=== PATIENT | male | born 1970 ===

== ENCOUNTER 2017-05-07 10:07 | Emergency (ER) | payer OTHER ==
[2017-05-07 10:19] VITALS: RESP 20; TEMP 98.1
[2017-05-07] MEDS ORDERED: ONDANSETRON HCL 4 MG/2 ML SOL IV ONE (10:22)
[2017-05-07] MEDS ORDERED: HYDROMORPHONE HCL 2 MG/ML SOL IV ONE ×2 (10:22→14:07)
[2017-05-07] MEDS ORDERED: SODIUM CHLORIDE 0.9% 1000ML 1,000 ML IV ONE (10:22)
[2017-05-07 10:33] LABS: BASOPHILS % (AUTO) 1 % (0-3); EOSINOPHILS % (AUTO) 3 % (0-9); HEMATOCRIT 38 % (39-53); MEAN CORPUSCULAR VOLUME 92 fL (80-100); MONOCYTES % (AUTO) 16.5 % (0-12); NEUTROPHILS % (AUTO) 54.9 % (37-80)
[2017-05-07] MEDS ORDERED: ONDANSETRON HCL 4 MG/2 ML SOL ONE (10:34)
[2017-05-07] MEDS ORDERED: HYDROMORPHONE HCL 2 MG/ML SOL ONE ×2 (10:34→14:09)
[2017-05-07 10:44] LABS: ALBUMIN 2.3 gm/dl (3.4-5.0); CALCIUM 7.3 mg/dl (8.5-10.1); POTASSIUM 3.4 mMol/L (3.5-5.1)
[2017-05-07] MEDS ORDERED: PANTOPRAZOLE SODIUM 40 MG/10 ML PDS IV ONE (11:08)
[2017-05-07] MEDS ORDERED: PANTOPRAZOLE SODIUM 40 MG/10 ML PDS ONE (11:17)
[2017-05-07 11:30] LABS: APPEARANCE,URINE Clear; BILIRUBIN,URINE 1+ (NEGATIVE); COLOR,URINE Dark yellow; GLUCOSE, URINE (UA) NEGATIVE (NEGATIVE); KETONES,URINE TRACE (NEGATIVE); LEUKOCYTE ESTERASE ,URINE NEGATIVE (NEGATIVE); NITRATE,URINE NEGATIVE (NEGATIVE); OCCULT BLOOD,URINE NEGATIVE (NEG-TRACE); PH,URINE 5.5
[2017-05-07 11:41] LABS: ICTOTEST,URINE POSITIVE (NEGATIVE)
[2017-05-07 11:42] LABS: WBC,URINE 0-1 (0-5AV/HPF)
[2017-05-07] MEDS ORDERED: THIAMINE 100 MG/ML 100 MG/ML SOL IV ONE (12:10)
[2017-05-07] MEDS ORDERED: THIAMINE 100 MG/ML 100 MG/ML SOL ONE (12:13)
[2017-05-07 17:01] VITALS: BP 153/94; PULSE 79; O2SAT 96
== END 2017-05-07 16:07 | disposition home or self-care (01) ==
LOC: ED 10:07
DX: K40.90 Unilateral inguinal hernia, without obstruction or gangrene, not specified as recurrent (principal); K70.31 Alcoholic cirrhosis of liver with ascites; F10.10 Alcohol abuse, uncomplicated; Y90.6 Blood alcohol level of 120-199 mg/100 ml; R93.3 Abnormal findings on diagnostic imaging of other parts of digestive tract
CPT/HCPCS: 74176; 74177; 80053; 80307; 81001; 83735; 85025; 96365; 96366; 96374; 96375; 99285; J1170; J2405; Q9967; J3411

== ENCOUNTER 2017-07-03 10:33 | Emergency (ER) | payer OTHER ==
[2017-07-03 10:39] VITALS: RESP 20; TEMP 97.3; O2SAT 98
[2017-07-03] MEDS ORDERED: APAP/HYDROCODONE 325/5 TAB ONE (11:36)
[2017-07-03] MEDS: APAP/HYDROCODONE 325/5 TAB PO ONE (11:38)
[2017-07-03 11:50] LABS: BASOPHILS % (AUTO) 1 % (0-3); EOSINOPHILS % (AUTO) 4 % (0-9); HEMATOCRIT 40 % (39-53); HEMOGLOBIN 13.5 gm/dl (13.5-17.7); MEAN CORPUSCULAR HEMOGLOBIN 31.7 pg (27.0-32.0); MEAN CORPUSCULAR HGB CONC 33.9 gm/dl (32.0-36.0); MEAN CORPUSCULAR VOLUME 94 fL (80-100); MONOCYTES % (AUTO) 9.1 % (0-12); NEUTROPHILS % (AUTO) 64.1 % (37-80)
[2017-07-03 11:51] VITALS: BP 151/82; PULSE 84
[2017-07-03 11:54] LABS: LACTIC ACID 1.6 mMol/L (0.0-2.0)
[2017-07-03 11:59] LABS: INR 1.19 (0.86-1.12)
[2017-07-03 12:03] LABS: ALBUMIN 2.1 gm/dl (3.4-5.0); BILIRUBIN,TOTAL 0.6 mg/dl (0.2-1.0); CALCIUM 7.5 mg/dl (8.5-10.1); CREATININE 0.73 mg/dl (0.80-1.30); POTASSIUM 3.3 mMol/L (3.5-5.1); TOTAL PROTEIN 7.6 gm/dl (6.4-8.2)
== END 2017-07-03 12:41 | disposition home or self-care (01) ==
LOC: ED 10:33
DX: R10.30 Lower abdominal pain, unspecified (principal); Z98.890 Other specified postprocedural states
CPT/HCPCS: 36415; 80053; 82140; 85025; 85610; 99283; A9270-GY

== ENCOUNTER 2017-09-12 08:47 | Emergency (ER) | payer OTHER ==
[2017-09-12 10:11] LABS: LACTIC ACID 1.4 mMol/L (0.0-2.0)
[2017-09-12 10:22] LABS: INR 1.63 (0.86-1.12)
[2017-09-12 10:26] LABS: ALBUMIN 1.5 gm/dl (3.4-5.0); BILIRUBIN,TOTAL 4.2 mg/dl (0.2-1.0); CALCIUM 7.7 mg/dl (8.5-10.1); CARBON DIOXIDE 27.5 mEq/L (21-32); CREATININE 0.81 mg/dl (0.80-1.30); POTASSIUM 3.3 mMol/L (3.5-5.1); TOTAL PROTEIN 8.2 gm/dl (6.4-8.2)
[2017-09-12 11:15] LABS: HEMATOCRIT 41 % (39-53)
[2017-09-12 12:29] VITALS: TEMP 97.7
[2017-09-12 12:39] VITALS: RESP 24
[2017-09-12] MEDS ORDERED: BACITRACIN 500 U/GM OIN TOP ONE ×2 (12:55)
[2017-09-12 14:40] VITALS: BP 143/75; PULSE 114; O2SAT 92
[2017-09-12 16:15] LABS: PERTIONEAL FL RBC 132 /mm3
[2017-09-12 16:16] LABS: PERITONEAL FL WBCS 75 /mm3
== END 2017-09-12 14:13 | disposition home or self-care (01) ==
LOC: ED 08:47
DX: K70.31 Alcoholic cirrhosis of liver with ascites (principal); R06.02 Shortness of breath
CPT/HCPCS: 36415; 49083; 74177; 80053; 82140; 85014; 85025; 85048; 85610; 89050; 99211; 99283; 99284; Q9967; A9270-GY

== ENCOUNTER 2017-09-24 12:51 | Emergency (ER) | payer OTHER ==
[2017-09-24 14:09] VITALS: RESP 21; TEMP 98.5
[2017-09-24 14:28] LABS: INR 1.59 (0.86-1.12)
[2017-09-24 14:31] LABS: ALBUMIN 1.4 gm/dl (3.4-5.0); BILIRUBIN,TOTAL 2.1 mg/dl (0.2-1.0); CARBON DIOXIDE 29.4 mEq/L (21-32); CREATININE 0.78 mg/dl (0.80-1.30); TOTAL PROTEIN 8.5 gm/dl (6.4-8.2)
[2017-09-24 14:37] LABS: BASOPHILS % (AUTO) 2 % (0-3); EOSINOPHILS % (AUTO) 2 % (0-9); HEMATOCRIT 42 % (39-53); HEMOGLOBIN 13.8 gm/dl (13.5-17.7); LYMPHOCYTES % (AUTO) 12.18 % (10-50); MEAN CORPUSCULAR HEMOGLOBIN 31.4 pg (27.0-32.0); MEAN CORPUSCULAR HGB CONC 32.4 gm/dl (32.0-36.0); MEAN CORPUSCULAR VOLUME 97 fL (80-100); MONOCYTES % (AUTO) 13.5 % (0-12); NEUTROPHILS % (AUTO) 70.4 % (37-80)
[2017-09-24 14:41] LABS: POTASSIUM 2.5 mMol/L (3.5-5.1)
[2017-09-24 14:56] LABS: APPEARANCE,URINE Clear; BILIRUBIN,URINE NEGATIVE (NEGATIVE); COLOR,URINE Yellow; GLUCOSE, URINE (UA) NEGATIVE (NEGATIVE); KETONES,URINE NEGATIVE (NEGATIVE); LEUKOCYTE ESTERASE ,URINE NEGATIVE (NEGATIVE); NITRATE,URINE NEGATIVE (NEGATIVE); OCCULT BLOOD,URINE NEGATIVE (NEG-TRACE)
[2017-09-24 15:03] LABS: BACTERIA 1+ (< 1+); CRYSTALS NEGATIVE (0-3 AVE/HPF); RBC,URINE 0-2 (0-3AV/HPF); WBC,URINE 0-2 (0-5AV/HPF)
[2017-09-24] MEDS ORDERED: POTASSIUM CHLORIDE 10 MEQ TER PO ONE (15:25)
[2017-09-24] MEDS ORDERED: POTASSIUM CHLORIDE 2 MEQ/ML 10 MEQ, LIDOCAINE HCL 1% MDV 2 ML in SODIUM CHLORIDE 0.9% 1... IV ONE (15:26)
[2017-09-24] MEDS ORDERED: POTASSIUM CHLORIDE 2 MEQ/ML SOL IV ONE (15:35)
[2017-09-24] MEDS ORDERED: POTASSIUM CHLORIDE 10 MEQ TER ONE (15:36)
[2017-09-24] MEDS ORDERED: LIDOCAINE HCL 1% MPF 30 SOL ONE (15:42)
[2017-09-24 17:17] VITALS: BP 136/87; PULSE 100; O2SAT 94
== END 2017-09-24 17:07 | disposition home or self-care (01) ==
LOC: ED 12:51
DX: K70.31 Alcoholic cirrhosis of liver with ascites (principal)
CPT/HCPCS: 36415; 80053; 81001; 85025; 85610; 96365; 99284; 99285; J3480; A9270-GY; J2001

== ENCOUNTER 2017-10-10 11:00 | Emergency (ER) | payer OTHER ==
[2017-10-10 11:20] VITALS: TEMP 98.3
[2017-10-10 11:58] LABS: BASOPHILS % (AUTO) 2 % (0-3); EOSINOPHILS % (AUTO) 3 % (0-9); HEMATOCRIT 39 % (39-53); HEMOGLOBIN 12.6 gm/dl (13.5-17.7); LYMPHOCYTES % (AUTO) 10.15 % (10-50); MEAN CORPUSCULAR HEMOGLOBIN 32.4 pg (27.0-32.0); MEAN CORPUSCULAR HGB CONC 32.3 gm/dl (32.0-36.0); MONOCYTES % (AUTO) 11.2 % (0-12)
[2017-10-10 12:00] LABS: MEAN CORPUSCULAR VOLUME 100 fL (80-100)
[2017-10-10 12:08] LABS: ALBUMIN 1.2 gm/dl (3.4-5.0); BILIRUBIN,TOTAL 3.8 mg/dl (0.2-1.0); CALCIUM 7.3 mg/dl (8.5-10.1); CARBON DIOXIDE 21.9 mEq/L (21-32); CREATININE 1.08 mg/dl (0.80-1.30); POTASSIUM 4.1 mMol/L (3.5-5.1); TOTAL PROTEIN 8.1 gm/dl (6.4-8.2)
[2017-10-10] MEDS ORDERED: BACITRACIN 500 U/GM OIN TOP ONE ×2 (13:25→15:00)
[2017-10-10 13:37] VITALS: RESP 24; O2SAT 98
[2017-10-10] MEDS ORDERED: ALBUMIN HUMAN 25 GM/100 ML SOL IV ONE (14:03)
[2017-10-10] MEDS ORDERED: ALBUMIN HUMAN 200 ML IV ONE (14:04)
[2017-10-10] MEDS ORDERED: SODIUM CHLORIDE 0.9% FLUSH 10 ML SOL IV PRN (14:53)
[2017-10-10 15:27] VITALS: BP 137/74; PULSE 98
== END 2017-10-10 15:42 | disposition home or self-care (01) ==
LOC: ED 11:00
DX: K70.31 Alcoholic cirrhosis of liver with ascites (principal)
CPT/HCPCS: 36415; 80053; 82150; 85025; 96365; 99070; 99211; 99284; 99285; P9047; A9270-GY

== ENCOUNTER 2017-10-18 12:26 | Emergency (ER) | payer OTHER ==
[2017-10-18 12:55] VITALS: BP 113/71; PULSE 92; RESP 16; TEMP 97.8; O2SAT 100
== END 2017-10-18 14:07 | disposition home or self-care (01) ==
LOC: ED 12:26
DX: N50.89 Other specified disorders of the male genital organs (principal); K70.31 Alcoholic cirrhosis of liver with ascites; F10.20 Alcohol dependence, uncomplicated; R18.8 Other ascites; R53.81 Other malaise
CPT/HCPCS: 99282

== ENCOUNTER 2018-01-20 16:29 | Emergency (ER) | payer OTHER ==
[2018-01-20] MEDS ORDERED: APAP/OXYCODONE 1 EACH TABLET PO ONE (17:07)
[2018-01-20 17:08] VITALS: BP 102/58; PULSE 80; RESP 18; TEMP 97.4; O2SAT 99
[2018-01-20] MEDS ORDERED: APAP/OXYCODONE 1 EACH TABLET ONE (17:17)
== END 2018-01-20 17:25 | disposition home or self-care (01) ==
LOC: ED 16:29
DX: K40.90 Unilateral inguinal hernia, without obstruction or gangrene, not specified as recurrent (principal); R18.8 Other ascites
CPT/HCPCS: 99282; A9270-GY

== ENCOUNTER 2018-05-06 15:47 | Emergency (ER) | payer OTHER ==
[2018-05-06 16:35] VITALS: RESP 20
[2018-05-06 17:17] VITALS: TEMP 97.6
[2018-05-06 17:35] VITALS: O2SAT 100
[2018-05-06 17:36] VITALS: BP 110/64; PULSE 94
== END 2018-05-06 17:30 | disposition home or self-care (01) | DRG 153 ==
LOC: ED 15:47
DX: J02.9 Acute pharyngitis, unspecified (principal); K40.90 Unilateral inguinal hernia, without obstruction or gangrene, not specified as recurrent
CPT/HCPCS: 87430; 99282; 99283

== ENCOUNTER 2018-08-17 10:25 | Emergency (ER) | payer OTHER ==
[2018-08-17] MEDS: SODIUM CHLORIDE 0.9% FLUSH 10 ML SOL IV PRN ×2 (10:42→13:16)
[2018-08-17 11:09] LABS: BASOPHILS % (AUTO) 2 % (0-3); EOSINOPHILS % (AUTO) 6 % (0-9); HEMATOCRIT 22 % (39-53); HEMOGLOBIN 7.5 gm/dl (13.5-17.7); LYMPHOCYTES % (AUTO) 25.3 % (10-50); MEAN CORPUSCULAR HEMOGLOBIN 33.7 pg (27.0-32.0); MEAN CORPUSCULAR HGB CONC 34.2 gm/dl (32.0-36.0); MONOCYTES % (AUTO) 11.6 % (0-12); NEUTROPHILS % (AUTO) 55.7 % (37-80)
[2018-08-17 11:10] LABS: MEAN CORPUSCULAR VOLUME 99 fL (80-100)
[2018-08-17 11:15] LABS: ALBUMIN 1.1 gm/dl (3.4-5.0); BILIRUBIN,TOTAL 6.2 mg/dl (0.2-1.0); CALCIUM 7.3 mg/dl (8.5-10.1); CARBON DIOXIDE 26.8 mEq/L (21-32); CREATININE 1.28 mg/dl (0.80-1.30); POTASSIUM 3.1 mMol/L (3.5-5.1); TOTAL PROTEIN 6.8 gm/dl (6.4-8.2)
[2018-08-17] MEDS ORDERED: LACTULOSE 10 GM/15 ML SOL PO SCH (11:45)
[2018-08-17] MEDS ORDERED: LACTULOSE 10 GM/15 ML SOL ONE (11:53)
[2018-08-17 12:32] VITALS: RESP 16; TEMP 97.3; O2SAT 100
[2018-08-17] MEDS ORDERED: POTASSIUM CHLORIDE 2 MEQ/ML 40 MEQ, LIDOCAINE HCL 1% MDV 2 ML in SODIUM CHLORIDE 0.9% 5... IV ONE (13:00)
[2018-08-17] MEDS ORDERED: ALBUMIN HUMAN 25 GM/100 ML SOL IV ONE (13:00)
[2018-08-17] MEDS ORDERED: POTASSIUM CHLORIDE 2 MEQ/ML SOL IV ONE (13:05)
[2018-08-17] MEDS ORDERED: LIDOCAINE HCL 1% MPF 30 SOL ONE (13:06)
[2018-08-17] MEDS ORDERED: ALBUMIN HUMAN 100 ML IV ONE (13:20)
[2018-08-17] MEDS ORDERED: SPIRONOLACTONE 25 MG TAB ONE (13:39)
[2018-08-17 13:40] VITALS: PULSE 97
[2018-08-17] MEDS ORDERED: SPIRONOLACTONE 25 MG TAB PO SCH (13:45)
[2018-08-17 13:52] VITALS: BP 110/61
== END 2018-08-17 14:18 | disposition short-term general hospital (02) | DRG 443 ==
LOC: ED 10:25
DX: K72.90 Hepatic failure, unspecified without coma (principal); K70.31 Alcoholic cirrhosis of liver with ascites
CPT/HCPCS: 36415; 70450; 74177; 80053; 82140; 85025; 85610; 85730; 87040; 96365; 99070; 99283; 99291; J3480; P9047; Q9967; A9270-GY; J2001

== ENCOUNTER 2018-09-10 10:18 | Emergency (ER) | payer OTHER ==
[2018-09-10 10:35] VITALS: TEMP 99.5
[2018-09-10 10:50] VITALS: RESP 16
[2018-09-10 11:32] LABS: HEMATOCRIT 20 % (39-53); MEAN CORPUSCULAR HEMOGLOBIN 33.5 pg (27.0-32.0); MEAN CORPUSCULAR HGB CONC 34.1 gm/dl (32.0-36.0); MEAN CORPUSCULAR VOLUME 98 fL (80-100)
[2018-09-10 11:41] LABS: ALBUMIN 1.6 gm/dl (3.4-5.0); BILIRUBIN,TOTAL 6.5 mg/dl (0.2-1.0); CALCIUM 7.6 mg/dl (8.5-10.1); CARBON DIOXIDE 19.6 mEq/L (21-32); CREATININE 2.44 mg/dl (0.80-1.30); CRP INFLAMMATORY 5.46 mg/dl (0.00-0.33); POTASSIUM 4.3 mMol/L (3.5-5.1); TOTAL PROTEIN 6.4 gm/dl (6.4-8.2)
[2018-09-10 11:49] LABS: HEMOGLOBIN 6.9 gm/dl (13.5-17.7)
[2018-09-10 12:29] LABS: BAND NEUTROPHILS % (MANUAL) 0 %; BASOPHILS % (MANUAL) 0 % (0-3); EOSINOPHILS % (MANUAL) 5 % (0-9); LYMPHOCYTES % (MANUAL) 12 % (10-50); MONOCYTES % (MANUAL) 15 % (0-12); NEUTROPHILS % (MANUAL) 68 % (37-80)
[2018-09-10 12:30] LABS: ANISOCYTOSIS SLIGHT
[2018-09-10] MEDS ORDERED: LACTULOSE 10 GM/15 ML SOL PO SCH (13:15)
[2018-09-10 13:53] VITALS: BP 119/65; PULSE 104; O2SAT 94
== END 2018-09-10 14:25 | disposition short-term general hospital (02) | DRG 392 ==
LOC: ED 10:18
DX: R10.9 Unspecified abdominal pain (principal); K70.31 Alcoholic cirrhosis of liver with ascites; D50.0 Iron deficiency anemia secondary to blood loss (chronic)
CPT/HCPCS: 36415; 80053; 82140; 82150; 83690; 85007; 85027; 86140; 99283; 99284; A9270-GY

== ENCOUNTER 2018-10-21 05:09 | Emergency (ER) | payer OTHER ==
[2018-10-21 05:24] VITALS: TEMP 100.4
[2018-10-21] MEDS ORDERED: HYDROMORPHONE HCL 2 MG/ML SOL IV ONE ×2 (05:37→07:12)
[2018-10-21] MEDS ORDERED: HYDROMORPHONE 1 MG/ML SYRINGE ONE ×2 (05:51→07:12)
[2018-10-21 06:24] LABS: BASOPHILS % (AUTO) 1 % (0-3); EOSINOPHILS % (AUTO) 9 % (0-9); HEMATOCRIT 21 % (39-53); LYMPHOCYTES % (AUTO) 15.2 % (10-50); MEAN CORPUSCULAR HEMOGLOBIN 32.6 pg (27.0-32.0); MEAN CORPUSCULAR HGB CONC 33.2 gm/dl (32.0-36.0); MEAN CORPUSCULAR VOLUME 98 fL (80-100); MONOCYTES % (AUTO) 11.1 % (0-12); NEUTROPHILS % (AUTO) 63.7 % (37-80)
[2018-10-21 06:30] LABS: HEMOGLOBIN 6.8 gm/dl (13.5-17.7)
[2018-10-21 06:34] LABS: ALBUMIN 1.9 gm/dl (3.4-5.0); BILIRUBIN,TOTAL 2.6 mg/dl (0.2-1.0); CALCIUM 7.2 mg/dl (8.5-10.1); CARBON DIOXIDE 18.1 mEq/L (21-32); CREATININE 1.19 mg/dl (0.80-1.30); TOTAL PROTEIN 5.6 gm/dl (6.4-8.2)
[2018-10-21 07:02] LABS: INR 2.03 (0.87-1.13)
[2018-10-21 10:20] VITALS: BP 108/64; PULSE 106; RESP 18; O2SAT 98
== END 2018-10-21 09:45 | disposition home or self-care (01) | DRG 434 ==
LOC: ED 05:09
DX: K70.31 Alcoholic cirrhosis of liver with ascites (principal); N50.82 Scrotal pain; D64.9 Anemia, unspecified; R00.0 Tachycardia, unspecified; R06.02 Shortness of breath
CPT/HCPCS: 36415; 80053; 82140; 85025; 85610; 96374; 99283; 99284; J1170